=== PATIENT | male | born 1985 | race Caucasian/White ===

== ENCOUNTER → 2017-01-27 | Outpatient (CLI) | payer OTHER ==
[~2017-01-27] MED LIST: GADAVIST IV PRN
--- NOTE | 2017-01-27 12:08 | DIAGNOSTIC IMAGING REPORT ---
FLUOROSCOPICALLY GUIDED RIGHT SHOULDER ARTHROGRAM PRIOR TO MRI CLINICAL HISTORY: Right shoulder pain. COMPARISON STUDY: Right shoulder radiographs August 26, 2015. FLUOROSCOPY TIME: 26 SECONDS. FINDINGS: The procedure, risks and benefits were discussed with the patient and informed written consent was obtained. The procedure was performed by Dr. Devlin following a timeout. Skin overlying the right glenohumeral joint was prepped and draped in sterile fashion and local anesthesia was achieved with 1% lidocaine. Under intermittent fluoroscopic guidance, a 2 and 1/2 inch, 22-gauge spinal needle was directed into the right glenohumeral joint. Positioning within the joint space was confirmed with injection a small amount of contrast. At this time, 12 cc of a mixture of 0.05 cc of Gadavist, 10 cc of Optiray 300 cc and 10 cc of normal saline was injected into the right glenohumeral joint. The needle was removed. The patient tolerated the procedure well and no immediate complications were evident. The patient was transported to MRI. IMPRESSION: Fluoroscopically guided right shoulder arthrogram prior to MRI Electronically signed by: Ruddy Devlin M.D. 01/27/2017 12:06 PM Dictated Date/Time: 01/27/2017 12:04 PM
--- NOTE | 2017-01-27 12:19 | DIAGNOSTIC IMAGING REPORT ---
MRI right shoulder RIGHT UPPER EXTREMITY JOINT W/ CLINICAL HISTORY: R SHOULDER PAIN W/LA BAL INJ Right trauma. Pain. TECHNIQUE: Multiaxial MRI acquisition COMPARISON STUDY: None FINDINGS: Signal characteristics the osseous structures are considered unremarkable. No significant bone marrow replacing process is appreciated. The structures the rotator cuff are intact. Biceps tendon is intact within the bicipital groove. Evaluation of the glenoid labrum shows a focal tear of the inferior labral surface. All remaining components of the labrum are unremarkable. IMPRESSION: 1. Focal tear inferior labrum. 2. Mild maceration anterior margin of the labrum. 3. All remaining components of the study are unremarkable. Electronically signed by: Arash Lambert M.D. 01/27/2017 12:17 PM Dictated Date/Time: 01/27/2017 12:14 PM
== END | disposition home or self-care (01) ==
LOC: C.MRIBC 10:55
PROVIDERS: ATTEND Family Medicine Sports Medicine
DX: M25.511 Pain in right shoulder (principal); S43.431A Superior glenoid labrum lesion of right shoulder, initial encounter; X58.XXXA Exposure to other specified factors, initial encounter